=== PATIENT | male | born 1980 | race Caucasian/White ===

== ENCOUNTER 2018-06-22 10:57 | Emergency (ER) | payer MEDICAID ==
[2018-06-22] MEDS: ONDANSETRON 4 MG INJ IV (12:11)
[2018-06-22] MEDS: ACETAMINOPHEN 500 MG TAB PO (12:11)
[2018-06-22] MEDS: SOD CHLORIDE 0.9% 1,000 ML IV (12:12)
== END 2018-06-22 13:34 | disposition home or self-care (01) ==
LOC: FTE 10:57
DX: R11.10 Vomiting, unspecified (principal)
CPT/HCPCS: 96361; 96374; 99284-25